=== PATIENT | female | born 2000 | race Caucasian/White ===

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

== ENCOUNTER 2023-05-06 17:42 | Emergency (ER) | payer OTHER, SELFPAY ==
[2023-05-06] VITALS (21 sets, daily range): BP systolic 94–111; BP diastolic 51–74; PULSE 65–105; RESP 13–21; TEMP 37–37.7; O2SAT 89–100
--- NOTE | ~2023-05-06 | CT_ITS ---
EXAMINATION: CT abdomen pelvis w con DATE: 05/06/2023 21:05 INDICATION: right flank pain, rule out stone TECHNIQUE: Computed tomography (CT) of the abdomen and pelvis was performed with 100 mL Omnipaque-350 intravenous contrast. Automated exposure control and iterative reconstruction technique were employe d. The dose-length product was 321.85 mGy-cm. COMPARISON: None. FINDINGS: Lower thorax: Unremarkable Liver: Scattered subcentimeter hypodensities, likely small cysts or hemangiomas. Biliary/Gallbladder: Gallbladder is normal. No bile duct dilation. Pancreas: No mass or duct dilation. Spleen: Normal. Adrenals:No mass. Kidneys: Focal areas of somewhat wedge-shaped hypodensity/hypoenhancement in the right kidney without a cortical rim sign. Mild right ureterectasis and urothelial hyperemia. No suspicious mass, obstruct ing stone, or left-sided hydronephrosis. GI tract: Mild distal esophageal and gastric wall edema No small or large bowel dilation. Normal appe ndix. Mesentery/Peritoneum: No ascites, mass, or free air. Retroperitoneum: No mass. Pelvis: Mild bladder wall thickening, the remaining pelvic organs are within normal limits. Soft Tissues: Soft tissues and body wall unremarkable. Bones: No acute osseous finding. IMPRESSION: Mild esophagitis/gastritis. Renal findings concerning for right pyelonephritis, possibly multifocal acute nephritis, from ascendi ng infection, with cystitis. Reviewed, dictated and finalized at location K. IMPRESSION: Mild esophagitis/gastritis. Renal findings concerning for right pyelonephritis, possibly multifocal acute n ephritis, from ascending infection, with cystitis.
[2023-05-06 18:50] LABS: Basophils Percent Auto 0.2 % (0.2-1.2); Hematocrit 39.2 % (37.0-47.0); Hemoglobin 12.5 g/dL (12.0-15.0); Immature Granulocyte Absolute 0.05 K/mm3 (0.00-0.031); Immature Granulocyte Percent A 0.5 % (0-0.5); Lymphocytes Absolute Auto 0.78 K/mm3 (0.9-3.2); Lymphocytes Percent Auto 7.1 % (18.3-44.2); Mean Corpuscular HGB Conc 31.9 g/dl (32-36); Mean Corpuscular Hemoglobin 25.2 pg (26-34); Mean Corpuscular Volume 78.9 fl (80-100); Mean Platelet Volume 9.9 fl (7.4-10.4); Monocytes Absolute Auto 0.9 K/mm3 (0.1-0.6); Monocytes Percent Auto 8.2 % (2.6-8.5); Neutrophils Absolute Auto 9.3 K/mm3 (1.3-6.7); Platelet Count Result 209 k/mm3 (150-375); Red Blood Count 4.97 M/mm3 (4.2-5.4); Red Cell Distribution Width 13.5 % (11.5-14.5)
[2023-05-06 18:58] LABS: Alanine Aminotransferase 18 U/L (6-35); Albumin Level 4.2 g/dL (3.5-5.1); Alkaline Phosphatase 69 U/L (38-126); Anion Gap 9 mmol/L (8-16); Aspartate Amino Transferase 28 U/L (14-36); Bilirubin,Total 0.6 mg/dL (0.2-1.3); Blood Urea Nitrogen 8 mg/dL (7-17); Calcium 8.9 mg/dL (8.4-10.2); Carbon Dioxide 21 mmol/L (22-30); Chloride 99 mmol/L (98-107); Estimated CRCL calculation 74 ml/min; Estimated Glomerular Filt Rate > 60; Glucose 99 mg/dL (65-110); Potassium 3.2 mmol/L (3.4-5.0); Sodium 129 mmol/L (137-145)
--- NOTE | 2023-05-06 19:24 | ED.GENADULT ---
HPI - General Adult General Chief complaint: Fever Stated complaint: fever/back pain Time Seen by Provider: 05/06/23 18:52 Source: patient Mode of arrival: ambulatory Limitations: no limitations History of Present Illness HPI narrative: This is a 22-year-old female who presents to the ED with chief complaint of right flank pain and fevers ongoing for the past 3 days. Patient states she was seen by urgent care today and was referred to the ER with concern for kidney infection. Patient states she has been having fevers up to 103 ?F at home, controlled with Tylenol. She was given which she states helps the pain and fevers now. Reports the pain is down from a 8 or 9 to a 3 here. She states however she is still having a lot of diaphoresis and chills. Denies hematuria, urinary frequency or dysuria. Denies nausea, vomiting. denies any history of UTIs or kidney stones in the past. Related Data Allergies Allergy/AdvReac Type Severity Reaction Status Date / Time No Known Allergies Allergy Mild Verified 02/26/23 09:40 Review of Systems Review of Systems: All systems as dictated in [facility] Past Medical History Medical History (Updated 05/07/23 @ 00:05 by Carly Harper) Anxiety Depression Family History Family History Grandparent Family history of malignant neoplasm of breast in first degree relative Acute myocardial infarction Social History Social History (Updated 02/26/23 @ 09:44 by Maribel Norwood MA) Smoking status: Never smoker Second hand tobacco smoke exposure: No Alcohol intake: never Substance use: never Lack of Transportation: No Lack of Food: Never True Current Housing: I Have Housing Concerned About Future Housing: No Difficulty Paying Gas/Electric Bills: No Difficulty Paying for Meds: No Currently Unemployed: No Education: High School Diploma/GED Living arrangements: with family Occupation/Education: student Gender identity (if verbalized by the patient): Female Sexual Orientation (if Verbalized by the Patient): Straight or Heterosexual Spiritual care concerns: No Exam Narrative: GENERAL: Resting comfortably, but diaphoretic. HEAD: Normocephalic, atraumatic. EYES: PERRLA and EOMI. ENT: Nares clear, no rhinorrhea or epistaxis. Mucous membranes moist. Oropharynx without tonsillar hypertrophy exudate or other lesions. NECK: Supple. No adenopathy or masses. CHEST: No respiratory distress. Clear to auscultation. No wheezes rales or rhonchi HEART: Regular rate and rhythm. No murmur heard. Normal peripheral pulses. ABDOMEN: Right flank tenderness positive. Negative flank flank tenderness. Soft, otherwise nontender, nondistended, normal active bowel sounds. MSK: Normal range of motion. No edema. SKIN: Warm, dry, no rash. NEURO: Alert and oriented x3. No focal deficits. PSYCH: Normal mood and affect. Course Course Emergency Course: Reevaluation 2129: Patient is still relatively pain-free. No longer nauseous. Well-appearing Vital Signs Vital signs: Vital Signs Temperature 99.8 F H 05/06/23 17:44 Pulse Rate 105 H 05/06/23 17:44 Respiratory Rate 20 05/06/23 17:44 Blood Pressure 101/58 L 05/06/23 17:44 Pulse Oximetry 99 05/06/23 17:44 Oxygen Delivery Room Air 05/06/23 17:44 Temperature 98.6 F 05/06/23 18:44 Pulse Rate 65 05/06/23 19:46 Respiratory Rate 13 05/06/23 19:46 Blood Pressure 99/55 L 05/06/23 20:46 Pulse Oximetry 94 05/06/23 21:45 Oxygen Delivery Room Air 05/06/23 17:44 Medical Decision Making MDM Narrative Medical decision making narrative: This is a 22-year-old female who presents to the ED with chief complaint of right flank pain ongoing for the past several days. She is diaphoretic on exam. Vitals show initial tachycardia but hemodynamically stable. Slight fever at 99.8 however she did have Toradol at the urgent care p
[2023-05-06 20:07] LABS: Appearance Urine Clear (Clear); Bacteria Urine None Seen /hpf; Bilirubin Urine Negative (Negative); Blood Urine 1+ (Negative); Color Urine Yellow (Yellow); Glucose Urine UA Negative (Negative); Ketones Urine 1+ mg/dL (Negative); Leukocyte Esterase Ur 1+ LEU/UL (Negative); Nitrate Urine Negative (Negative); Non Pathogenic Casts 0-2; Protein Urine 1+ mg/dL (Negative); Specific Grav Ur 1.011 (1.001-1.035); Squamous Epithelial Cell Urine Occasional /hpf (Few); WBC Urine 21-50 /hpf; pH Urine 6.5 (5.0-9.0)
[2023-05-06 20:11] LABS: Add Urine Microscopic? YES
[2023-05-06] MEDS: SODIUM CHLORIDE 0.9% IV 1,000 ML 999 ML IV CONT (20:47)
[2023-05-06] MEDS: cefTRIAXone 2 GM/NS 100 ML 2 GM/100 ML BAG IVPB (21:08)
[2023-05-06] MEDS: POTASSIUM CHLORIDE 20 MEQ ER TABLET PO (22:26)
== END 2023-05-06 22:32 | disposition home or self-care (01) ==
PROVIDERS: Student in an Organized Health Care Education/Training Program; Emergency Provider Physician Assistant
DX: N12 Tubulo-interstitial nephritis, not specified as acute or chronic (principal); K20.90 Esophagitis, unspecified without bleeding; K29.70 Gastritis, unspecified, without bleeding
CPT/HCPCS: 36415; 74177; 80053; 81001; 81025; 85025; 87077; 87086; 87186; 96361; 96365; 99284; A9270; J0696; J7030; Q9967